=== PATIENT | female | born 1995 | race African-American/Black ===

== ENCOUNTER 2018-08-03 14:24 | Emergency (ER) | payer OTHER ==
--- NOTE | 2018-08-03 14:31 | PDOC ---
History of Present Illness - General History Source: Patient Exam Limitations: No Limitations - History of Present Illness Initial Comments: 08/03/18 15:08 The patient is a 22 year old female, with no significant past medical history, who presents to the emergency department with 6 days of frontal headache which has progressively increasing since Monday. She states the headache has been throbbing and exacerbated with standing and bending forward. She states she now has pressure behind her left eye associated with looking to the extreme left or extreme right with the affected eye. She denies visual changes. She states she did not take any medications for her symptoms. She states I do not take pills . She also reports looking directly at light causes discomfort to both eyes. She also states she has not been able to eat for about 2 days secondary to inducing gagging but denies vomiting. She states she has been drinking gatorade Secondarily, she states she is concerned that her menstrual period appear to be clear with pink tinge on her 3rd day of menstruation which is unlike the usual brown discharge she experiences. She states she saw her SHOE CLEANER because she was 27 days late, had a negative test, and was started on 10 days of medication to bring the period. She states the period was expected to start on Monday, however, started on Monday. She denies any other associated symptoms. The patient denies chest pain, shortness of breath, and dizziness. The patient denies fever, chills, nausea, vomit, diarrhea and constipation. The patient denies dysuria, frequency, urgency and hematuria. Allergies: NKDA <Janey Cee - Last Filed: 08/03/18 15:08> <Marry Peña - Last Filed: 08/03/18 16:41> - General Chief Complaint: Headache Stated Complaint: HEADACHE Time Seen by Provider: 08/03/18 14:31 Past History <Janey Cee - Last Filed: 08/03/18 15:08> - Past Medical History COPD: No - Suicide/Smoking/Psychosocial Hx Smoking History: Never smoked Hx Alcohol Use: No Drug/Substance Use Hx: No Substance Use Type: None <Marry Peña - Last Filed: 08/03/18 16:41> - Past Medical History Allergies/Adverse Reactions: Allergies Allergy/AdvReac Type Severity Reaction Status Date / Time No Known Allergies Allergy Verified 08/03/18 14:33 Home Medications: Ambulatory Orders Metoclopramide HCl [Reglan] 10 mg PO QID PRN #10 tablet 08/03/18 Review of Systems - Review of Systems Able to Perform ROS?: Yes Comments:: 08/03/18 15:08 GENERAL/CONSTITUTIONAL: (+) decreased appetite. No fever or chills. No weakness. HEAD, EYES, EARS, NOSE AND THROAT: (+) pressure pain behind left eye with movement. mild photophobia. No change in vision. No ear pain or discharge. No sore throat. CARDIOVASCULAR: No chest pain or shortness of breath. RESPIRATORY: No cough, wheezing, or hemoptysis. GASTROINTESTINAL: No nausea, vomiting, diarrhea or constipation. GENITOURINARY: No dysuria, frequency, or change in urination. MUSCULOSKELETAL: No joint or muscle swelling or pain. No neck or back pain. SKIN: No rash NEUROLOGIC: (+) headache, vertigo, loss of consciousness, or change in strength/ sensation. ENDOCRINE: No increased thirst. No abnormal weight change. HEMATOLOGIC/LYMPHATIC: No anemia, easy bleeding, or history of blood clots. ALLERGIC/IMMUNOLOGIC: No hives or skin allergy. <Janey Cee - Last Filed: 08/03/18 15:08> *Physical Exam - Vital Signs Last Vital Signs Temp Pulse Resp BP Pulse Ox 99.1 F 88 16 111/76 100 08/03/18 14:25 08/03/18 14:25 08/03/18 14:25 08/03/18 14:25 08/03/18 14:25 - Physical Exam Comments: 08/03/18 15:10 GENERAL: Awake, alert, and fully oriented, in no acute distress HEAD: No signs of trauma EYES: PERRLA, EOMI, sclera anicteric, conjunctiva clear ENT: Auricles normal inspection, hearing grossly normal, nares patent, oropharynx clear without exudates. Moist mucosa NECK: Normal ROM, supple, no lymphadenopathy, JVD, or masses LUNGS: Breath sounds equal, clear to auscultation bilaterally. No wheezes, and no crackles HEART: Regular rate and rhythm, normal S1 and S2, no murmurs, rubs or gallops ABDOMEN: Soft, nontender, normoactive bowel sounds. No guarding, no rebound. No masses EXTREMITIES: Normal range of motion, no edema. No clubbing or cyanosis. No cords, erythema, or tenderness NEUROLOGICAL: Cranial nerves II through XII grossly intact. Normal speech, normal gait SKIN: Warm, Dry, normal turgor, no rashes or lesions noted. <Janey Cee - Last Filed: 08/03/18 15:08> Medical Decision Making - Medical Decision Making 08/03/18 16:32 Pt presents to the ED complaining of mild, gradual onset, frontal headache, without other complaints. Symptoms most consistent with tension WALTERS. Given the duration of her symptoms and the gradual onset, serious causes of WALTERS such as subarachnoid unlikely. Initial plan was for labs and IV reglan, but patient refused IV. Will treat with PO reglan and reassess. 08/03/18 16:38 patient feels greatly improved after PO reglan and is asking to go home. Will discharge home with rx for reglan <Marry Peña - Last Filed: 08/03/18 16:41> *DC/Admit/Observation/Transfer - Attestations Scribe Attestion: 08/03/18 15:10 Documentation prepared by Janey Cee, acting as medical collector for Marry Peña MD <Janey Cee - Last Filed: 08/03/18 15:08> - Discharge Dispostion Decision to Admit order: No <Marry Peña - Last Filed: 08/03/18 16:41> Diagnosis at time of Disposition: Headache Qualifiers: Headache type: unspecified Headache chronicity pattern: acute headache Intractability: not intractable Qualified Code(s): R51 - Headache - Discharge Dispostion Disposition: HOME Condition at time of disposition: Good - Prescriptions Prescriptions: Metoclopramide HCl [Reglan] 10 mg PO QID PRN #10 tablet PRN Reason: Headache - Referrals Referrals: Saloni Bell DO [Primary Care Provider] - - Patient Instructions Printed Discharge Instructions: DI for Headache Additional Instructions: return to the ED severe headache, especially headache with fever, nausea and vomiting, very severe headache or other new or worsening symptoms. Make sure that you follow up with your primary care doctor within one week. - Post Discharge Activity
[2018-08-03 14:47] VITALS: BP 111/76; PULSE 88; TEMP 99.1; BMI 27.8
[2018-08-03] MEDS ORDERED: METOCLOPRAMIDE HCL INJECTION 10 MG/2 ML VIAL IVPUSH ONE (14:52)
[2018-08-03] MEDS ORDERED: SODIUM CHLORIDE 0.9% 500 ML INFUS.BAG IV ONE (14:52)
[2018-08-03] MEDS ORDERED: METOCLOPRAMIDE HCL INJECTION 10 MG/2 ML VIAL ONE (15:03)
[2018-08-03] MEDS ORDERED: METOCLOPRAMIDE HCL 10 MG TABLET (FP) PO ONE ×2 (15:28→15:32)
== END 2018-08-03 16:49 | disposition home or self-care (01) ==
LOC: FER 14:24
DX: R51 Headache (principal)
CPT/HCPCS: 84703; 99282-25

== ENCOUNTER 2020-12-12 14:00 | Emergency (ER) | payer OTHER ==
[2020-12-12 14:24] VITALS: BP 101/67; PULSE 86; TEMP 97.8; BMI 25.6
[2020-12-12] MEDS ORDERED: KETOROLAC TROMETHAMINE 60 MG/2 ML VIAL IM ONE (15:13)
[2020-12-12] MEDS ORDERED: METHOCARBAMOL 500 MG TABLET PO ONE (15:13)
[2020-12-12] MEDS ORDERED: LIDOCAINE 5% TOPICAL PATCH TP ONE (15:13)
[2020-12-12] MEDS ORDERED: METHOCARBAMOL 500 MG TABLET ONE (15:29)
[2020-12-12] MEDS ORDERED: KETOROLAC TROMETHAMINE 60 MG/2 ML VIAL ONE (15:29)
[2020-12-12] MEDS ORDERED: LIDOCAINE 5% TOPICAL PATCH ONE (15:29)
[2020-12-12] MEDS ORDERED: LIDOCAINE PATCH REMOVAL MC SCH (22:00)
== END 2020-12-12 18:50 | disposition home or self-care (01) ==
LOC: FER 14:00
PROC: 3E0233Z Introduction of Anti-inflammatory into Muscle, Percutaneous Approach (ICD-10-PCS; principal; 2020-12-12)
DX: M25.512 Pain in left shoulder (principal); M25.562 Pain in left knee; M25.572 Pain in left ankle and joints of left foot; V03.00XA Pedestrian on foot injured in collision with car, pick-up truck or van in nontraffic accident, initial encounter; Y93.01 Activity, walking, marching and hiking
CPT/HCPCS: 72100-TC-FY; 73030-TC-LT-FY; 73523-TC-FY; 73562-TC-LT-FY; 73590-TC-LT-FY; 73610-TC-LT-FY; 73630-TC-LT; 81025; 99285-25

== ENCOUNTER 2022-03-30 00:57 | Emergency (ER) | payer OTHER ==
[2022-03-30 01:12] VITALS: BP 98/49; PULSE 62; RESP 16; TEMP 98.8; BMI 26.2
[2022-03-30] MEDS ORDERED: SODIUM CHLORIDE 0.9% 1000 ML INFUS.BAG IV ONE (01:24)
[2022-03-30] MEDS ORDERED: ONDANSETRON 4 MG/2 ML VIAL IVPUSH ONE (01:24)
[2022-03-30] MEDS ORDERED: ONDANSETRON 4 MG/2 ML VIAL ONE ×2 (01:27→02:19)
== END 2022-03-30 03:46 | disposition home or self-care (01) ==
LOC: FER 00:57
PROC: 3E033GC Introduction of Other Therapeutic Substance into Peripheral Vein, Percutaneous Approach (ICD-10-PCS; principal; 2022-03-30)
DX: O21.1 Hyperemesis gravidarum with metabolic disturbance (principal); Z3A.09 9 weeks gestation of pregnancy
CPT/HCPCS: 76815; 99284-25

== ENCOUNTER 2022-04-13 21:09 | Emergency (ER) | payer OTHER ==
[2022-04-13 21:20] VITALS: BP 108/66; PULSE 81; RESP 16; TEMP 98.6; BMI 26.2
[2022-04-13] MEDS ORDERED: ONDANSETRON *ODT* 4 MG TABLET SL ONE (21:33)
[2022-04-13] MEDS ORDERED: ONDANSETRON *ODT* 4 MG TABLET ONE (21:37)
== END 2022-04-13 21:39 | disposition home or self-care (01) ==
LOC: FER 21:09
DX: O21.9 Vomiting of pregnancy, unspecified (principal); Z3A.10 10 weeks gestation of pregnancy
CPT/HCPCS: 99283-25; Q0162

== ENCOUNTER 2023-02-12 08:29 | Emergency (ER) | payer OTHER ==
[2023-02-12 08:41] VITALS: BP 114/80; PULSE 60; RESP 17; TEMP 98.2; BMI 51.8
[2023-02-12 09:14] LABS: HEMATOCRIT 42.3 % (32.4-45.2); MCH 32.3 pg (25.7-33.7); MCHC 33.2 g/dl (32.0-36.0); MEAN CELL VOLUME 97.5 fl (80-96); MEAN PLT VOLUME 9.2 fl (7.5-11.1); PLATELET COUNT 209.1 10^3/uL (134-434); RBC 4.34 10^6/uL (3.60-5.2); RDW 13.8 % (11.6-15.6); WHITE BLOOD COUNT 6.2 10^3/uL (4.0-10.8)
[2023-02-12 09:34] LABS: HCG,QUALITATIVE URINE Negative
[2023-02-12] MEDS ORDERED: ACETAMINOPHEN 325 MG TABLET (FP) PO ONE (10:25)
== END 2023-02-12 10:58 | disposition home or self-care (01) ==
LOC: FER 08:29
DX: R10.30 Lower abdominal pain, unspecified (principal); N92.0 Excessive and frequent menstruation with regular cycle
CPT/HCPCS: 36415; 76830-TC; 81003; 81015; 84703; 85027; 86850; 86900; 86901; 99284-25